=== PATIENT | male | born 1970 | race Caucasian/White ===

== ENCOUNTER 2025-01-09 17:27 | Emergency (ER) | payer OTHER, MEDICAID ==
[~2025-01-09] VITALS: Ht 180.3 cm; Wt 109.2 kg
--- NOTE | 2025-01-09 17:34 | ELECTROCARDIOGRAPH REPORT ---
[facility] Test Date: 2025-01-09 Test Time: 17:33:40 Pat Name: ONEYDA DOSS Department: EMERGENCY ROOM Room: Gender: M Release Engineer: : [id number] Requested By: LEA LEIVA Order Number: [id number] Reading MD: Dr. Jarad Montilla Measurements Intervals Wing Rate: 82 P: 40 WA: 137 QRS: 34 QRSD: 96 T: 6 QT: 367 QTc: 429 Interpretive Statements Sinus rhythm Left atrial enlargement Abnormal R-wave progression, early transition Minimal ST depression, inferior leads Electronically Signed On 01-10-2025 18:48:[address] Jarad Montilla Please click the below link to view image of tracing.
[2025-01-09 17:55] LABS: MEAN PLATELET VOLUME 9.4 FL (7.4-10.4); RED CELL DISTRIBUTION WIDTH 13.2 % (11.5-14.5)
--- NOTE | 2025-01-09 18:08 | RADIOLOGY REPORT ---
CHEST RADIOGRAPH Indication: CP Technique: DI CHEST,SINGLE VIEW Comparison: None FINDINGS: The cardiac silhouette is unremarkable. The lungs demonstrate no pulmonary airspace consolidation. The pulmonary vasculature is unremarkable. There is no pleural effusion. There is no pneumothorax. IMPRESSION: No pulmonary airspace consolidation.
[2025-01-09 18:17] LABS: CREATININE 1.08 MG/DL (0.60-1.10); PRO BRAIN NATRIURETIC PEPTIDE 42 PG/ML (0-125); TOTAL CARBON DIOXIDE 27.9 MMOL/L (24-32); eCRCL 81 ML/MIN; eGFR 71 ML/MIN
[2025-01-09 20:20] VITALS: BP 159/114; PULSE 78; RESP 16; TEMP 98.2; O2SAT 98
--- NOTE | 2025-01-09 22:44 | Physician Documentation ---
History of Present Illness ~ Chief Complaint: Palpitations Stated Complaint: IRREGULAR HR Time Seen by MD: 21:21 Mode of Arrival: POV HPI Is a very pleasant 54-year-old male that reports to the emergency department for evaluation of intermittent light chest pain as the patient describes it. Reports that he had 2 cups of coffee yesterday immediately after had intermittent chest pain lasting for approximately 4 hours. Today the patient reports he had 1 cup of coffee and has had intermittent chest pain periodically through the day. Patient denies any shortness of breath radiating chest pain headache nausea vomiting diarrhea or any other symptoms. Medication Reconciliation Allergies: Coded Allergies: No Known Allergies (Unverified , 01/09/25) Review of Systems ROS As stated above in the HPI, otherwise all systems are reviewed and negative. Physical Exam Vital Signs: Temperature: 98.2, Source: Oral, Heart Rate: 78, Respiratory Rate: 16, BP: 159/114, Pulse Oximetry: 98, Weight: 109.200 Oxygen Flow Rate: 0 Physical Exam VITALS: Reviewed and as above. GENERAL: Alert, no apparent distress. HEENT: Normocephalic, atraumatic, PERRL, EOMI, dry mucosa, no erythema RESPIRATORY: Lungs clear, normal breath sounds, no respiratory distress. CHEST: No accessory muscle use, no retractions CV: Regular rate, rhythm, no edema, no murmur, No: JVD GI: Soft, non-tender, bowels sounds present, no rebound, guarding, or rigidity BACK: No CVA tenderness, or swelling MUSCULOSKELETAL No deformities, no edema SKIN: Warm and dry, no rash NEURO: Oriented x4, No motor or sensory deficit PSYCH: Normal mood and affect, no agitation Progress Results/Orders Results/Orders Vital Signs 01/09/25 01/09/25 01/09/25 17:41 20:20 20:20 Temp 98.2 98.2 Pulse 94 78 Resp 16 16 B/P (MAP) 139/82 159/114 (129) Pulse Ox 96 98 O2 Flow Rate 0 0 Laboratory Tests Test 01/09/25 17:38 01/09/25 20:39 White Blood Count 9.1 Red Blood Count 5.20 Hemoglobin 16.0 Hematocrit 45.9 Mean Corpuscular Volume 88.3 Mean Corpuscular Hemoglobin 30.9 Mean Corpuscular Hemoglobin Concent 34.9 Red Cell Distribution Width 13.2 Platelet Count 234 Mean Platelet Volume 9.4 Neutrophils (%) (Auto) 64.0 Lymphocytes (%) (Auto) 25.9 Monocytes (%) (Auto) 6.7 Eosinophils (%) (Auto) 2.6 Basophils (%) (Auto) 0.8 Neutrophils # (Auto) 5.8 Lymphocytes # (Auto) 2.4 Monocytes # (Auto) 0.6 Eosinophils # (Auto) 0.2 Basophils # (Auto) 0.1 CBC Comment Sodium Level 140 Potassium Level 3.7 Chloride Level 107 Carbon Dioxide Level 27.9 Anion Gap 5 L Blood Urea Nitrogen 16 Creatinine 1.08 Estimated GFR/1.73 m2 71 BUN/Creatinine Ratio 14.8 Glucose Level 129 H Calcium Level 8.5 Troponin I High Sensitivity 5 5 Pro-B-Type Natriuretic Peptide 42 Albumin 4.0 Chemistry Comments Troponin I High Sens Percent Delta 0 Troponin I Hi Sens Absolute Change 0 Medical Decision Making Additional information obtaine: other Findings Medical Decision-Making: The patient presented with acute chest pain. All laboratory diagnostics, including high-sensitivity cardiac troponin, chest X-ray, and 12-lead ECG, were without abnormality. The patient remained clinically stable throughout the ED stay, and symptoms have fully subsided. Risk stratification was performed using guideline-recommended clinical decision pathways (CDPs), including assessment of history, physical exam, ECG, and troponin. The patient meets criteria for low-risk chest pain, with a <1% 30-day risk of major adverse cardiac events (MACE), and does not require further inpatient cardiac testing or admission. The patient was educated on lifestyle modifications, specifically reducing caffeine and stimulant intake, and the importance of outpatient follow-up with their primary care provider within 1430 days to ensure continuity of care and further risk factor management. The patient was advised to return to the emergency department immediately if symptoms recur, especially if associated with shortness of breath, radiating pain, lightheadedness, or other concerning features. No evidence of acute coronary syndrome, pulmonary embolism, aortic syndrome, or other life-threatening etiologies was found. Disposition is appropriate for discharge with outpatient follow-up and clear return precautions per current ACC/AHA guidelines. Differential Dx:Considerations: Include: angina / [place], atrial dysrhythmia, atrial fibrillation, atrial flutter, MAT, PACs, PSVT, sinus tachycardia, WPW, 1st degree AV block, 2nd degree AVB-type 1, 2nd degree AVB-type 2, 3rd degree AV block, PVCs, torsades de pointes, ventricular fibrillation, ventricular t achycardia, other Differential Dx:Considerations: Include anxiety/panic attack, Include digoxin toxicity, Include electrolyte disorder, Include heart failure, Include hyperthyroidism, Include hyperventilation, Include hypoxia, Include pacemaker malfunction, Include pulmonary embolus, Include renal failure, Include other Departure Disposition: 01 HOME / SELF CARE / HOMELESS Impression: Primary Impression: Palpitations Condition: Stable Discharge Instructions: Palpitations, [id number] Additional Instructions: You were evaluated for chest pain in the emergency department. All of your tests including blood work, chest X-ray, and heart tracing (ECG)were normal. Your symptoms have improved, and you are considered low risk for serious heart problems. What to do next: Follow up with your primary care provider (PCP) within the next 1430 days. This is important to review your health and discuss any risk factors or further steps. Reduce caffeine and avoid stimulants. These can sometimes trigger chest discomfort or palpitations. Monitor your symptoms. If you have any new or returning chest pain, especially if it is severe, spreads to your arm, neck, or jaw, or is associated with shortness of breath, lightheadedness, fainting, or sweating, return to the emergency department immediately. Take your medications as prescribed and continue any recommended lifestyle changes, such as eating a healthy diet, exercising regularly, and not smoking. Why follow up? Most chest pain is not caused by heart problems, but it is important to check in with your doctor to manage any risk factors and ensure your continued health. When to seek emergency care: Chest pain that comes back or gets worse Chest pain with shortness of breath, fainting, sweating, or pain spreading to your arm, neck, or jaw Feeling very weak, dizzy, or lightheaded If you have any questions or concerns, contact your doctor or return to the emergency department. You are being discharged today because your risk of a serious heart event is very low, but it is important to stay alert to your health and follow up as instructed. Referrals: NO PRIMARY CARE PROVIDER (PCP) Education Educated: Patient Educated regarding: diagnosis, treatment, need for follow up Signature Scribe Signature: A Attestation: Scribed for Jace Reyes by DON Green . 01/09/25 22:44 JACE REYES Jan 09, 2025 22:44
== END 2025-01-09 22:47 | disposition home or self-care (01) ==
LOC: ER 17:28
DX: R00.2 Palpitations (principal)
CPT/HCPCS: 36415; 71045; 80048; 83880; 84484; 85025; 93005; 99285